=== PATIENT | male | born 1990 | race Caucasian/White ===

== ENCOUNTER 2018-02-20 13:45 | Emergency (ER) | payer BC, OTHER ==
[~2018-02-20] VITALS: Ht 182.9 cm; Wt 106.8 kg
[~2018-02-20 13:45] MED LIST: HYDR-565 PO; HYDR1TAB PO; SILV50CR31 TP
[2018-02-20 14:15] VITALS: BP 135/77
== END 2018-02-20 19:34 | disposition left against medical advice (07) ==
LOC: ER 13:45
DX: M54.9 Dorsalgia, unspecified (principal); Z53.21 Procedure and treatment not carried out due to patient leaving prior to being seen by health care provider

== ENCOUNTER 2018-02-20 22:51 | Emergency (ER) | payer BC, OTHER ==
[~2018-02-20] VITALS: Ht 182.9 cm; Wt 110.2 kg
[2018-02-20 23:43] VITALS: BP 144/87
== END 2018-02-20 23:45 | disposition home or self-care (01) ==
LOC: ER 22:51
DX: M54.5 Low back pain (principal); Z79.899 Other long term (current) drug therapy
CPT/HCPCS: 99281

== ENCOUNTER 2019-03-13 10:14 | Emergency (ER) | payer MEDICAID, OTHER ==
[~2019-03-13] VITALS: Ht 182.9 cm; Wt 104.5 kg
[~2019-03-13 10:14] MED LIST changes: +HYDR-4353 PO; -HYDR-565 PO
[2019-03-13 10:29] VITALS: BP 119/75
[2019-03-13] MEDS ORDERED: LIDOcaine 1% w/epiNEPHrine 1:200,000 30ml vial IM ONE (11:55)
[2019-03-13] MEDS ORDERED: TETanus/Pertussis (Acell)/Diphther VAC/PF (Tdap-Adult) 0.5ml syringe IM ONE (11:55)
[2019-03-13] MEDS ORDERED: HYDR-4383 PO (13:22)
[2019-03-13] MEDS ORDERED: IBUP-1986 PO (13:22)
[2019-03-13] MEDS ORDERED: AMOX-422 PO (13:22)
== END 2019-03-13 13:32 | disposition home or self-care (01) ==
LOC: ER 10:15
DX: S81.811A Laceration without foreign body, right lower leg, initial encounter (principal); Z79.899 Other long term (current) drug therapy; W54.0XXA Bitten by dog, initial encounter; Y93.89 Activity, other specified; Y92.89 Other specified places as the place of occurrence of the external cause; Y99.8 Other external cause status
CPT/HCPCS: 12005; 90471; 99284

== ENCOUNTER 2019-03-29 16:58 | Emergency (ER) | payer MEDICAID, OTHER ==
[~2019-03-29] VITALS: Ht 182.9 cm; Wt 100.0 kg
[~2019-03-29 16:58] MED LIST changes: +HYDR-4383 PO; +IBUP-1986 PO
[2019-03-29 17:03] VITALS: BP 119/70
== END 2019-03-29 17:58 | disposition home or self-care (01) ==
LOC: ER 16:58
DX: S81.811D Laceration without foreign body, right lower leg, subsequent encounter (principal); Z79.2 Long term (current) use of antibiotics; Z79.899 Other long term (current) drug therapy; W54.0XXD Bitten by dog, subsequent encounter
CPT/HCPCS: 99283

== ENCOUNTER 2021-02-21 12:04 | Emergency (ER) | payer MEDICAID ==
[~2021-02-21] VITALS: Ht 182.9 cm; Wt 115.9 kg
[2021-02-21 12:07] VITALS: BP 136/103
[2021-02-21] MEDS ORDERED: IBUP-1984 PO (15:10)
== END 2021-02-21 15:21 | disposition home or self-care (01) ==
LOC: ER 12:05
DX: S93.691A Other sprain of right foot, initial encounter (principal); S90.414A Abrasion, right lesser toe(s), initial encounter; Z79.899 Other long term (current) drug therapy; W22.8XXA Striking against or struck by other objects, initial encounter; Y93.02 Activity, running; Y92.098 Other place in other non-institutional residence as the place of occurrence of the external cause; Y99.8 Other external cause status
CPT/HCPCS: 73630; 99283

== ENCOUNTER 2021-03-06 09:33 | Emergency (ER) | payer MEDICAID ==
[~2021-03-06] VITALS: Ht 182.9 cm; Wt 113.9 kg
[~2021-03-06 09:33] MED LIST changes: +IBUP-1984 PO
[2021-03-06 10:02] VITALS: BP 137/84
== END 2021-03-06 10:33 | disposition home or self-care (01) ==
LOC: ER 09:33
DX: S90.31XA Contusion of right foot, initial encounter (principal); M79.671 Pain in right foot; Z79.899 Other long term (current) drug therapy; X58.XXXA Exposure to other specified factors, initial encounter; Y93.89 Activity, other specified; Y92.89 Other specified places as the place of occurrence of the external cause; Y99.8 Other external cause status
CPT/HCPCS: 99281

== ENCOUNTER 2021-09-22 22:42 | Emergency (ER) | payer MEDICAID ==
[~2021-09-22] VITALS: Ht 182.9 cm; Wt 118.0 kg
[~2021-09-22 22:42] MED LIST changes: -IBUP-1984 PO
[2021-09-22 22:59] VITALS: BP 139/67
[2021-09-23] MEDS ORDERED: DOXY100C43 PO (12:34)
== END 2021-09-23 03:12 | disposition left against medical advice (07) ==
LOC: ER 22:43
DX: L02.411 Cutaneous abscess of right axilla (principal)
CPT/HCPCS: 99281

== ENCOUNTER 2021-09-23 11:44 | Emergency (ER) | payer MEDICAID ==
[~2021-09-23] VITALS: Ht 182.9 cm; Wt 118.2 kg
[2021-09-23 11:59] VITALS: BP 157/69
[2021-09-23] MEDS ORDERED: DOXY100C43 PO (12:34)
== END 2021-09-23 13:15 | disposition home or self-care (01) ==
LOC: ER 11:45
DX: L02.411 Cutaneous abscess of right axilla (principal); Z79.2 Long term (current) use of antibiotics; Z79.899 Other long term (current) drug therapy
CPT/HCPCS: 99283

== ENCOUNTER 2022-10-31 13:29 | Emergency (ER) | payer MEDICAID ==
[~2022-10-31] VITALS: Ht 182.9 cm; Wt 113.6 kg
[2022-10-31 15:26] LABS: BASOPHILS # (AUTO) 0.1 X10'3 (0-0.2); BASOPHILS % (AUTO) 0.6 % (0-1); EOSINOPHILS % (AUTO) 0.2 % (0-6); HEMATOCRIT 48.6 % (42.0-52.0); HEMOGLOBIN 16.8 g/dl (14.0-17.9); LYMPHOCYTES # (AUTO) 3.1 X10'3 (1.1-4.8); MEAN CORPUSCULAR HEMOGLOBIN 31.1 PG (27.0-31.0); MEAN CORPUSCULAR HGB CONC 34.6 g/dL (33.0-36.5); MONOCYTES # (AUTO) 0.8 X10'3 (0-0.9); MONOCYTES % (AUTO) 6.5 % (2-12); NEUTROPHILS # (AUTO) 7.9 X10'3 (1.8-7.7); NEUTROPHILS % (AUTO) 66.7 % (42-75); PLATELET COUNT 407 X10'3 (140-440); RED CELL DISTRIBUTION WIDTH 13.3 % (11.5-14.5); WHITE BLOOD COUNT 11.9 X10'3 (4.5-11.0)
[2022-10-31 15:36] LABS: URINE AMPHETAMINE SCREEN NEGATIVE (Neg); URINE BARBITUATE SCREEN NEGATIVE (Neg); URINE BENZODIAZEPINES SCREEN NEGATIVE (Neg); URINE CANNABINOID SCREEN POSITIVE (Neg); URINE COCAINE SCREEN POSITIVE (Neg); URINE METHADONE SCREEN NEGATIVE (Neg); URINE OPIATE SCREEN NEGATIVE (Neg); URINE PHENCYCLIDINE SCREEN NEGATIVE (Neg)
[2022-10-31 15:44] LABS: CLARITY,URINE CLEAR (Clear); COLOR,URINE YELLOW (Yellow); GLUCOSE, URINE NEGATIVE (Neg); KETONES,URINE NEGATIVE (Neg); LEUKOCYTE ESTERASE ,URINE NEGATIVE (Neg); NITRITES, URINE NEGATIVE (Neg); OCCULT BLOOD,URINE NEGATIVE (Neg); PH,URINE 6.5 (4.8-8.0); PROTEIN,URINE 100 mg/dl (Neg); UROBILINOGEN,URINE 0.2 E.U/dL (0.2-1.0)
[2022-10-31 15:46] LABS: ALANINE AMINOTRANSFERASE 47 U/L (12-78); ALBUMIN 4.8 G/DL (3.4-5.0); ALBUMIN/GLOBULIN RATIO 1.2 (1.1-1.5); ALKALINE PHOSPHATASE 54 IU/L (46-116); ANION GAP 8 (8-16); ASPARTATE AMINO TRANSFERASE 23 U/L (10-37); BILIRUBIN,TOTAL 0.4 MG/DL (0.1-1.0); BLOOD UREA NITROGEN 12 MG/DL (7-18); BUN/CREATININE RATIO 12.1 (5.4-32.0); CALCIUM 9.4 MG/DL (8.5-10.1); CHLORIDE 103 MMOL/L (99-107); CREATININE 0.99 MG/DL (0.60-1.10); GLUCOSE 101 MG/DL (70-104); POTASSIUM 4.3 MMOL/L (3.5-5.1); SODIUM 141 MMOL/L (135-145); TOTAL CARBON DIOXIDE 30.1 MMOL/L (24-32); TOTAL PROTEIN 8.8 G/DL (6.4-8.2); eGFR 88 ML/MIN
[2022-10-31 15:47] LABS: ACETAMINOPHEN < 2.0 UG/ML (10-30)
[2022-10-31 15:48] LABS: UA COLLECTION TYPE CLN CATCH MIDSTREAM
[2022-10-31 15:49] LABS: BACTERIA,URINE NONE SEEN /HPF (Neg); MUCUS STRANDS MODERATE /LPF (Neg); RBC,URINE NONE SEEN /HPF (0-2); SQUAMOUS EPITHELIAL CELL,UR NONE SEEN /LPF (FEW); WBC,URINE NONE SEEN /HPF (0-4)
[2022-10-31 17:02] VITALS: BP 138/86
== END 2022-10-31 17:03 | disposition home or self-care (01) ==
LOC: ER 13:29
DX: F15.10 Other stimulant abuse, uncomplicated (principal); Z88.5 Allergy status to narcotic agent
CPT/HCPCS: 36415; 70450; 71045; 80053; 80305; 80329; 81001; 84484; 85025; 99285; J7030; 93005